=== PATIENT | female | born 1960 | race African-American/Black ===

== ENCOUNTER → 2016-12-23 | Outpatient (CLI) | payer OTHER ==
[~2016-12-23] MED LIST: ASPI-482 PO; LANS30CA17 PO; LISI10TA2 PO; REGADENOSON 0.4 MG/5 ML DISP.SYRIN. IV ONE
--- NOTE | 2016-12-23 13:24 | RAD ---
APPROVED REPORT Test Type: Pharmacological Stress Nurse/Tech: Nilda Bowers R.N. Test Indications: Precordial chest pain. Cardiac History: SEE EMR Medications: SEE EMR Medical History: SEE EMR Resting ECG: SB Resting Heart Rate: 58 bpm Resting Blood Pressure: 160/75mmHg Pretest Chest Pain: None Nurse/Tech Notes S1S2, lungs CTA, denied chest pain and SOA. Consent: The procedure was explained to the patient in lay terms. Informed consent was witnessed. Ray eout was entered into [employer]. History and Stress Test performed by Nilda Bowers R.N. Pharm. Details Pharmacologic stress testing was performed using 0.4mg per 5ml of regadenoson given intravenously ove r 7-10 seconds. Stress Symptoms Slightly SOA and nauseous. POST EXERCISE Reason for Termination: Infusion complete Max HR: 114 bpm Max Blood Pressure: 162/66mmHg Blood Pressure response to exercise: Normal blood pressure response during stress. Chest Pain: No. Arrhythmia: No. ST Change: No. INTERPRETATION Stress EKG Conclusion: No acute changes were noted. Imaging Protocol IMAGE PROTOCOL: Rest Tc-99m/stress Tc-99m 1 day Rest: Stress: Viability: Radiopharm.Tc99m MchxndcrkJc02x Sestamibi Qlpk60vFr 32.4mCi Duration 15min. 10min. Img Date 12/23/2016 12/23/2016 Inj-Img Sbkf27nat. 60min. Rest Admin Site:IV - Left HandAdministrator:Arnold Gama RT (R)(N) Stress Admin Site: IV - Left HandAdministrator: Barbara Alvarez RT (R)(N) STRESS DATA End Diast. Vol.84.0mlAv. Heart Rate65.0bpm End Syst. Vol.22.0mlCO Index BSA0.0L/min Myocardial Ndbu335.0gEject. Mokfoqfj22.0% Stress Rates Pk. Fill Rate3.51EDV/secLVtime Pk. Fill 128.00msec Pk. Empty Rate4.17ESV/secLVtime Pk. Bjpnh011.59msec 08/05 Pk. Fill2.36EDV/sec Stress Scores Regional WT0.00Summed WT0.00 Regional WM0.00Summed WM0.00 The rest and stress images show normal perfusion, normal contraction and thickening. LV Perf. Quant 17 Seg. SSS2.00 17 Seg. SRS1.00 17 Seg. SDS1.00 Stress Defect Extent (% LAD)0.00Rest Defect Extent (% LAD)0.00Rev. Defect Extent (% LAD)0.00 Stress Defect Extent (% LCX) 10.00Rest Defect Extent (% LCX)15.00Rev. Defect Extent (% LCX)0.00 Stress Defect Extent (% RCA)0.00Rest Defect Extent (% RCA)0.00Rev. Defect Extent (% RCA)0.00 Stress Defect Extent (% LNIH)2.20Rest Defect Extent (% LINH)2.60Rev. Defect Extent (% LINH)0.00 Other Information Quality:Good Risk Assessment: Low Risk Conclusion 1. No evidence of stress induced EKG changes. 2. Normal perfusion at stress/rest. 3. Low risk study. EF > 70%
--- NOTE | 2016-12-23 17:13 | CARD ---
APPROVED REPORT EXAM: Two-dimensional and M-mode echocardiogram with Doppler and color Doppler. Other Information Quality : Good INDICATION Chest Pain 2D DIMENSIONS RVDd3.1 (2.9-3.5cm)Left Atrium(2D)3.3 (1.6-4.0cm) IVSd0.8 (0.7-1.1cm)Aortic Root(2D)2.7 (2.0-3.7cm) LVDd5.2 (3.9-5.9cm)LVOT Diameter2.0 (1.8-2.4cm) PWd0.8 (0.7-1.1cm)LVDs3.3 (2.5-4.0cm) FS (%) 30.0 %SV85.2 ml LVEF(%)60.0 (>50%) Aortic Valve AoV Peak Bon.144.2cm/sAoV VTI34.3cm AO Peak GR.8.3mmHgLVOT Peak Bon.90.1cm/s LVOT VTI 23.74cmAO Mean GR.4mmHg CARLA (VMAX)1.80qs4OHH (VTI)2.11cm2 Mitral Valve MV E Hxkcjini07.1cm/sMV DECEL KLTR915ee MV A Tglvybgn50.7cm/sMV BXL95sh E/A Ratio0.8MVA (PHT)2.83cm2 TDI E/Lateral E'6.0E/Medial E'9.8 Tricuspid Valve TR P. Gqgbfcmr373qu/sRAP PXIZXROT3bsWc TR Peak Gr.95gvNrQWUG57vhGn Pulmonary Vein S1 Xumthese44.1cm/sD2 Hhjafxkk06.2cm/s PVa dcygefyy061tpsn LEFT VENTRICLE The left ventricle is normal size. There is normal left ventricular wall thickness. The left ventricu lar systolic function is normal and the ejection fraction is within normal range. The Ejection Fracti on is 55-60%. There is normal LV segmental wall motion. Transmitral Doppler flow pattern is Grade I-a bnormal relaxation pattern. RIGHT VENTRICLE The right ventricle is normal size. The right ventricular systolic function is normal. ATRIA The left atrium size is normal. The right atrium size is normal. The interatrial septum is intact wit h no evidence for an atrial septal defect or patent foramen ovale as noted on 2-D or Doppler imaging. AORTIC VALVE The aortic valve is normal in structure and function. Doppler and Color Flow revealed no significant aortic regurgitation. There is no significant aortic valvular stenosis. MITRAL VALVE The mitral valve is thickened but opens well. There is no evidence of mitral valve prolapse. There is no mitral valve stenosis. Doppler and Color-flow revealed trace mitral regurgitation. TRICUSPID VALVE The tricuspid valve is normal in structure and function. Doppler and Color Flow revealed trace tricus pid regurgitation. The PA pressure was estimated at 16 mmHg. There is no tricuspid valve stenosis. PULMONIC VALVE The pulmonary valve is normal in structure and function. Doppler and Color Flow revealed trace pulmon ic valvular regurgitation. There is no pulmonic valvular stenosis. GREAT VESSELS The aortic root is normal in size. The ascending aorta is normal in size. The IVC is normal in size a nd collapses >50% with inspiration. PERICARDIAL EFFUSION There is no evidence of significant pericardial effusion. Critical Notification Critical Value: No <Conclusion> The left ventricle is normal size. The left ventricular systolic function is normal and the ejection fraction is within normal range. The Ejection Fraction is 55-60%. There is no significant aortic valvular stenosis. Doppler and Color Flow revealed no significant aortic regurgitation. Doppler and Color-flow revealed trace mitral regurgitation. Doppler and Color Flow revealed trace tricuspid regurgitation. The PA pressure was estimated at 16 mmHg. There is no evidence of significant pericardial effusion.
--- NOTE | 2016-12-25 10:38 | EKG ---
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 NORMAL HEART RATE RANGE 2. LESS THAN 1% PVC'S AND PAC'S. NO SIGNIFICANT ARRHYTHMIAS, SHORT BURSTS OF PAT, VERY LIMITED Electronically Signed On 12-25-2016 15:27:52 CDT by Benigno Amezcua
== END | disposition home or self-care (01) ==
LOC: NM 07:57
PROVIDERS: ATTEND Internal Medicine Cardiovascular Disease
DX: I08.1 Rheumatic disorders of both mitral and tricuspid valves (principal); R07.2 Precordial pain; R00.2 Palpitations
CPT/HCPCS: 78452; 93017; 93225; 93306; 96374; 96375; 96376; A9500; J2785; 93226

== ENCOUNTER 2019-09-23 18:52 | Emergency (ER) | payer BC, OTHER ==
[~2019-09-23] VITALS: Ht 165.1 cm; Wt 101.3 kg
[~2019-09-23 18:52] MED LIST changes: -LANS30CA17 PO; +LANS30CA66 PO; -REGADENOSON 0.4 MG/5 ML DISP.SYRIN. IV ONE
[2019-09-23 19:17] VITALS: BP 120/77
[2019-09-23] MEDS ORDERED: ORPHENADRINE CITRATE 60 MG/2 ML VIAL. IM ONE (19:45)
[2019-09-23] MEDS ORDERED: DEXAMETHASONE SOD PHOS 20 MG/5 ML VIAL. IM ONE (19:45)
[2019-09-23] MEDS ORDERED: ORPH100T PO (20:03)
--- NOTE | 2019-09-23 20:03 | PHYS DOC ---
Past Medical History Past Medical History: High Cholesterol, Hypertension Past Surgical History: No Surgical History Smoking Status: Never Smoker Alcohol Use: None Adult General Chief Complaint Chief Complaint: [facility] HPI Patient is a 59 year old AA female, accompanied by her , who presents to the emergency department with complaints of pain in her left shoulder that radiates down her left arm. She was seen at [facility] a week ago and had a negative stress test and negative workup for cardiac issues. Patient states that she went to her primary care doctor 3 days ago and was prescribed some naproxen but that the pain persists. She states that the pain increases when she moves her head to the right, or she puts pressure on her posterior left shoulder. She denies any injury. Patient denies any fever, chest pain, shortness of breath, palpitations, nausea, vomiting, diaphoresis, or back pain. She denies any redness, warmth, or swelling of the affected joint. Patient denies any decreased range of motion of the affected extremity. She currently rates her discomfort a 10 out of 10 on the pain scale, she has tried taking the medication was prescribed and also applying heat with no relief in her symptoms. Review of Systems Review of Systems Complete ROS is negative unless otherwise noted in HPI. Current Medications Current Medications Current Medications Medications (Trade) Dose Ordered Sig/Deep Start Time Stop Time Status Last Admin Dose Admin Dexamethasone Sodium Phosphate (Decadron) 10 mg 1X ONCE 09/23/19 19:45 09/23/19 19:52 DC 09/23/19 19:45 10 MG Orphenadrine Citrate (Norflex) 60 mg 1X ONCE 09/23/19 19:45 09/23/19 19:52 DC 09/23/19 19:45 60 MG Allergies Allergies Allergies Coded Allergies Type Severity Reaction Last Updated Verified No Known Drug Allergies 07/18/15 No Physical Exam Physical Exam See Above Constitutional: Well developed, well nourished, no acute distress, non-toxic appearance. [] HENT: Normocephalic, atraumatic, bilateral external ears normal, nose normal. [] Eyes: PERRLA, EOMI, conjunctiva normal, no discharge. [] Neck: Normal range of motion, no stridor. [] Cardiovascular:Heart rate regular rhythm Lungs & Thorax: Respirations even and unlabored, no retractions, no respiratory distress Back: No bony tenderness, no CVA tenderness; L trapezius tightness and tenderness to palpation. [] Extremities: No cyanosis, ROM intact, no edema. [] Neurologic: Alert and oriented X 3, no focal deficits noted. [] Psychologic: Affect normal, judgement normal, mood normal. [] Current Patient Data Vital Signs Vital Signs Date Time Temp Pulse Resp B/P (MAP) Pulse Ox O2 Delivery O2 Flow Rate FiO2 09/23/19 19:17 97.7 75 22 120/77 (91) 97 Room Air 97.7 EKG EKG [] Radiology/Procedures Radiology/Procedures [] Course & Med Decision Making Course & Med Decision Making Pertinent Labs and Imaging studies reviewed. (See chart for details) [] Dragon Disclaimer Dragon Disclaimer This electronic medical record was generated, in whole or in part, using a voice recognition dictation system. Departure Departure Impression: Primary Impression: Trapezius muscle strain Additional Impression: Strain of cervical portion of left trapezius muscle Disposition: HOME, SELF-CARE Condition: STABLE Referrals: [facility] (PCP) Patient Instructions: Cervical Radiculopathy, Znjw-ms-Nueb, Cervical Sprain, Kojn-eq-Jowk Additional Instructions: Fill the prescription(s) and use as directed. Apply heat or ice for to sore areas as needed for comfort. Activity as tolerated. Follow up with your primary care doctor this week if symptoms persist, return to the ER if symptoms worsen. Scripts Orphenadrine Citrate (ORPHENADRINE CITRATE) 100 Mg Tablet.er 1 TAB PO BID PRN for PAIN for 10 Days, #20 TAB 0 Refills Prov: CLEMENT CHUN APRN 09/23/19 Problem Qualifiers Primary Impression: Trapezius muscle strain Encounter type: initial encounter Laterality: left Qualified Codes: S46.812A - Strain of other muscles, fascia and tendons at shoulder and upper arm level, left arm, initial encounter CLEMENT CHUN APRN Sep 23, 2019 20:03
== END 2019-09-23 20:25 | disposition home or self-care (01) ==
LOC: ER 18:52
DX: S46.812A Strain of other muscles, fascia and tendons at shoulder and upper arm level, left arm, initial encounter (principal); E78.00 Pure hypercholesterolemia, unspecified; I10 Essential (primary) hypertension; X58.XXXA Exposure to other specified factors, initial encounter; Y93.89 Activity, other specified; Y92.89 Other specified places as the place of occurrence of the external cause; Y99.8 Other external cause status
CPT/HCPCS: 96372; 99284; J1100; J2360

== ENCOUNTER 2020-12-14 16:27 | Emergency (ER) | payer OTHER, BC ==
[~2020-12-14] VITALS: Ht 167.6 cm; Wt 101.0 kg
[~2020-12-14 16:27] MED LIST changes: +LISI10TA16 PO; -LISI10TA2 PO; +ORPH100T PO
[2020-12-14 16:37] VITALS: BP 153/72
[2020-12-14] MEDS ORDERED: DEXAMETHASONE 4 MG TABLET PO ONE (17:30)
[2020-12-14] MEDS ORDERED: MECLIZINE HCL 12.5 MG TABLET. PO ONE (17:30)
[2020-12-14] MEDS ORDERED: MECL-75 PO (17:31)
[2020-12-14] MEDS ORDERED: ORPH100T PO (17:31)
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
== END 2020-12-14 17:41 | disposition home or self-care (01) ==
LOC: ER 16:27
DX: S16.1XXA Strain of muscle, fascia and tendon at neck level, initial encounter (principal); R42 Dizziness and giddiness; E78.00 Pure hypercholesterolemia, unspecified; I10 Essential (primary) hypertension; V89.2XXA Person injured in unspecified motor-vehicle accident, traffic, initial encounter; Y93.89 Activity, other specified; Y92.410 Unspecified street and highway as the place of occurrence of the external cause; Y99.8 Other external cause status
CPT/HCPCS: 99283; J8597